=== PATIENT | female | born 1950 | race Two or more races ===

== ENCOUNTER → 2016-07-15 | Outpatient (CLI) | payer OTHER, MEDICAID | LOC: CIMAGING 12:47 | PROVIDERS: ATTEND Family Medicine | DX: J44.9 Chronic obstructive pulmonary disease, unspecified (principal) | CPT/HCPCS: 71020-PO ==

== ENCOUNTER → 2017-07-21 | Outpatient (CLI) | payer OTHER, MEDICAID | LOC: CIMAGING 14:24 | PROVIDERS: ATTEND Family Medicine | DX: I51.7 Cardiomegaly (principal); Z99.81 Dependence on supplemental oxygen | CPT/HCPCS: 71046-PO ==

== ENCOUNTER → 2017-12-31 | Outpatient (CLI) | payer MEDICAID | LOC: CIMAGING 07:48 | PROVIDERS: ATTEND Family Medicine | DX: R10.11 Right upper quadrant pain (principal); R10.13 Epigastric pain; R53.81 Other malaise; Z86.19 Personal history of other infectious and parasitic diseases | CPT/HCPCS: 76705-PO ==

== ENCOUNTER → 2018-02-24 | Outpatient (CLI) | payer OTHER, MEDICAID | LOC: CIMAGING 10:21 | PROVIDERS: ATTEND Family Medicine | DX: M50.322 Other cervical disc degeneration at C5-C6 level (principal); R91.1 Solitary pulmonary nodule | CPT/HCPCS: 72040-PO ==

== ENCOUNTER → 2018-03-03 | Outpatient (CLI) | payer OTHER, MEDICAID | LOC: CIMAGING 10:25 | PROVIDERS: ATTEND Family Medicine | DX: J84.10 Pulmonary fibrosis, unspecified (principal) | CPT/HCPCS: 71046-PO ==

== ENCOUNTER → 2018-07-07 | Outpatient (CLI) | payer OTHER, MEDICAID | LOC: BHCLAF 14:00 | PROVIDERS: ATTEND Internal Medicine Cardiovascular Disease | DX: R01.1 Cardiac murmur, unspecified (principal); I10 Essential (primary) hypertension | CPT/HCPCS: 93306-PO ==